=== PATIENT | female | born 1930 | race Caucasian/White ===

== ENCOUNTER → 2017-07-11 | Outpatient (CLI) | payer MEDICARE, BC ==
--- NOTE | 2017-07-12 09:25 | RAD ---
Right leg venous Doppler study: Clinical indications: Right leg swelling and pain. Findings: Duplex sonography (including castellanos scale evaluation and color flow and waveform spectral analysis) of the proximal aspect of the greater saphenous vein and proximal aspect of the profunda femoral vein and the entire length of the common femoral and superficial femoral and popliteal veins and the tibioperoneal trunk and the proximal aspect of the posterior tibial and peroneal veins of the right leg was performed. Normal compressibility, augmentation of color Doppler flow after calf compression, and respiratory variation of Doppler flow is seen. Thus, there are no sonographic findings of deep venous thrombosis within these veins. Impression: There are no sonographic findings of deep venous thrombosis within the veins discussed above of the right lower extremity.
== END | disposition home or self-care (01) ==
LOC: US 15:04
PROVIDERS: ATTEND Family Medicine
DX: M79.604 Pain in right leg (principal); M79.89 Other specified soft tissue disorders
CPT/HCPCS: 93971

== ENCOUNTER 2018-09-11 17:28 | Emergency (ER) | payer MEDICARE, BC ==
[~2018-09-11] VITALS: Ht 165.1 cm; Wt 68.0 kg
[2018-09-11 17:50] VITALS: BP 170/82
[2018-09-11] MEDS ORDERED: ACETAMINOPHEN 500 MG TABLET PO ONE (18:00)
--- NOTE | 2018-09-11 19:08 | ED.ADGEN ---
Past History Past Medical History: Hypertension Past Surgical History: Appendectomy Alcohol Use: None Drug Use: None Adult General Chief Complaint Chief Complaint Fever, weakness HPI HPI Patient is a 88-year-old female presents with generalized weakness and accidental fall while gardening. Patient states she slipped and landed in the softball moderate. Denies injury. This report cough from yesterday and feeling generally weak. Patient noted to have fever 100.3 in the ED. Patient reports generalized malaise. Currently denies cough, chest pain, shortness of breath. No nausea or vomiting. Denies abdominal pain, urinary frequency urgency. No other acute symptoms or complaints.[] Review of Systems Review of Systems Review symptoms as per history of present illness. All other review symptoms are negative All other systems were reviewed and found to be within normal limits, except as documented in this note. Current Medications Current Medications Current Medications Medications (Trade) Dose Ordered Sig/Doug Start Time Stop Time Status Last Admin Dose Admin Acetaminophen (Tylenol) 500 mg 1X ONCE 09/11/18 18:00 09/11/18 18:01 DC 09/11/18 18:13 500 MG Ceftriaxone Sodium 1 gm/ Sodium Chloride 50 ml @ 100 mls/hr 1X ONCE 09/11/18 19:15 09/11/18 19:44 DC 09/11/18 19:25 100 MLS/HR Ceftriaxone Sodium (Rocephin) 1 gm STK-MED ONCE 09/11/18 19:22 09/11/18 19:23 DC Sodium Chloride 50 ml @ As Directed STK-MED ONCE 09/11/18 19:22 09/11/18 19:23 DC Allergies Allergies Allergies Coded Allergies Type Severity Reaction Last Updated Verified No Known Drug Allergies 09/11/18 No Physical Exam Physical Exam Constitutional: Well developed, well nourished, no acute distress, non-toxic appearance. [] HENT: Normocephalic, atraumatic, bilateral external ears normal, oropharynx moist, no oral exudates, nose normal. [] Eyes: PERRLA, EOMI, conjunctiva normal, no discharge. [] Neck: Normal range of motion, no tenderness, supple, no stridor. [] Cardiovascular:Heart rate regular rhythm, no murmur [] Lungs & Thorax: Bilateral breath sounds clear to auscultation [] Abdomen: Bowel sounds normal, soft, no tenderness.. [] Skin: Warm, dry, no erythema, no rash. [] Back: No tenderness, no CVA tenderness. [] Extremities: No tenderness, no cyanosis, no clubbing, ROM intact, no edema. [] Neurologic: Alert and oriented X 3, normal motor function, normal sensory function, no focal deficits noted. [] Psychologic: Affect normal, judgement normal, mood normal. [] Current Patient Data Vital Signs Vital Signs Date Time Temp Pulse Resp B/P (MAP) Pulse Ox O2 Delivery O2 Flow Rate FiO2 09/11/18 17:50 100.3 90 18 96 Room Air Lab Results Laboratory Tests Test 09/11/18 18:50 White Blood Count 5.0 x10^3/uL (4.0-11.0) Red Blood Count 4.18 x10^6/uL (3.50-5.40) Hemoglobin 12.8 g/dL (12.0-15.5) Hematocrit 37.7 % (36.0-47.0) Mean Corpuscular Volume 90 fL (79-100) Mean Corpuscular Hemoglobin 31 pg (25-35) Mean Corpuscular Hemoglobin Concent 34 g/dL (31-37) Red Cell Distribution Width 13.9 % (11.5-14.5) Platelet Count 220 x10^3/uL (140-400) Neutrophils (%) (Auto) 62 % (31-73) Lymphocytes (%) (Auto) 21 % (24-48) L Monocytes (%) (Auto) 15 % (0-9) H Eosinophils (%) (Auto) 2 % (0-3) Basophils (%) (Auto) 1 % (0-3) Neutrophils # (Auto) 3.1 x10^3uL (1.8-7.7) Lymphocytes # (Auto) 1.0 x10^3/uL (1.0-4.8) Monocytes # (Auto) 0.7 x10^3/uL (0.0-1.1) Eosinophils # (Auto) 0.1 x10^3/uL (0.0-0.7) Basophils # (Auto) 0.1 x10^3/uL (0.0-0.2) Sodium Level 135 mmol/L (136-145) L Potassium Level 3.8 mmol/L (3.5-5.1) Chloride Level 100 mmol/L (98-107) Carbon Dioxide Level 25 mmol/L (21-32) Anion Gap 10 (6-14) Blood Urea Nitrogen 19 mg/dL (7-20) Creatinine 1.1 mg/dL (0.6-1.0) H Estimated GFR (Cockcroft-Gault) 46.9 Glucose Level 99 mg/dL (70-99) Calcium Level 8.7 mg/dL (8.5-10.1) EKG EKG [] Radiology/Procedures Radiology/Procedures [] Course & Med Decision Making Course & Med Decision Making Pertinent Labs and Imaging studies reviewed. (See chart for details) [Symptoms improved with treatment. Patient resting currently requesting discharge home. IV fluids antibiotics given prior to discharge. Return precautions reviewed.] Final Impression Final Impression [1 acute febrile illness 2. Urinary tract infection] Dragon Disclaimer Dragon Disclaimer This electronic medical record was generated, in whole or in part, using a voice recognition dictation system. ADDIS BOOKER DO September 11, 2018 19:08
[2018-09-11] MEDS ORDERED: IV NORMAL SALINE 1,000ML 1,000 ML IV ONE (19:15)
[2018-09-11] MEDS ORDERED: cefTRIAXone SODIUM 1 GM VIAL ONE (19:22)
[2018-09-11] MEDS ORDERED: IV NORMAL SALINE 50ML 50 ML ONE (19:22)
[2018-09-11 19:26] LABS: BASO # 0.1 x10^3/uL (0.0-0.2); BASO % 1 % (0-3); EOS # 0.1 x10^3/uL (0.0-0.7); EOS % 2 % (0-3); HEMATOCRIT 37.7 % (36.0-47.0); HEMOGLOBIN 12.8 g/dL (12.0-15.5); LYMPH % 21 % (24-48); MEAN CORPUSCULAR HEMOGLOBIN 31 pg (25-35); MEAN CORPUSCULAR HGB CONC 34 g/dL (31-37); MEAN CORPUSCULAR VOLUME 90 fL (79-100); MONO # 0.7 x10^3/uL (0.0-1.1); MONO % 15 % (0-9); NEUT # 3.1 x10^3uL (1.8-7.7); NEUT % 62 % (31-73); PLATELET COUNT 220 x10^3/uL (140-400); RED BLOOD COUNT 4.18 x10^6/uL (3.50-5.40); RED CELL DISTRIBUTION WIDTH 13.9 % (11.5-14.5)
--- NOTE | 2018-09-11 19:33 | RAD ---
CHEST PA LATERAL History: Cough. Heart size is not enlarged. No evidence of pneumothorax, pleural effusion or airspace consolidation. There is some mild markings in left lung base likely mild atelectasis. There is some focal protuberance or eventration of the left hemidiaphragm. Skeletal structures appear intact. IMPRESSION: Mild atelectasis left lung base. Electronically signed by: Jose Mcwilliams MD (09/11/2018 7:30 PM) [facility]
[2018-09-11 19:35] LABS: CALCIUM 8.7 mg/dL (8.5-10.1); CREATININE 1.1 mg/dL (0.6-1.0); GFR 46.9; POTASSIUM 3.8 mmol/L (3.5-5.1)
[2018-09-11] MEDS ORDERED: CEPH-264 PO (20:14)
[2018-09-11 21:47] LABS: BILIRUBIN,URINE NEG (NEG); CLARITY,URINE CLEAR; COLOR,URINE YELLOW; GLUCOSE,URINE NEG (NEG); NITRITE,URINE NEG (NEG); UROBILINOGEN,URINE 0.2 mg/dL (0.2 mg/dL)
== END 2018-09-11 20:25 | disposition home or self-care (01) ==
LOC: ER 17:28
DX: N39.0 Urinary tract infection, site not specified (principal); I10 Essential (primary) hypertension; W01.0XXA Fall on same level from slipping, tripping and stumbling without subsequent striking against object, initial encounter; Y93.89 Activity, other specified; Y92.89 Other specified places as the place of occurrence of the external cause; Y99.8 Other external cause status
CPT/HCPCS: 36415; 71046; 80048; 81003; 85025; 87040; 87205; 96365; 99285; J0696; 87077; J7030

== ENCOUNTER 2019-05-18 07:18 | Inpatient (IN) | payer MEDICARE, BC ==
[~2019-05-18] VITALS: Ht 160 cm; Wt 71.4 kg
[~2019-05-18 07:18] MED LIST: CEPH-264 PO
[2019-05-18 09:01] VITALS: BP 125/76
[2019-05-18] MEDS ORDERED: AMLO5TAB10 PO (10:43)
--- NOTE | 2019-05-18 15:47 | HP ---
ADMIT DATE: 05/18/2019 HISTORY OF PRESENT ILLNESS: The patient is an 88-year-old female patient who presented with focal left arm weakness. She stated that she was not able to get out the car due to weakness on her left side more than right side on 05/09/2019. The patient reports having some trouble using fork and spoon with her left arm since the day before admission to [facility] on 05/10/2019. Her motor deficit is consistent with denies any sensory deficit. Her daughter also reports that it seems to be harder for her to walk today comparing to the day before, though the patient has known ankle issue, has been going to therapy on a regular basis. She denies any slurring of speech, visual impairment. The daughter stated that she has had a blood clot in her leg 20 years ago, never had any other clotting problems since then. She also reports mild increase in urinary frequency. No dysuria nor urgency. She was evaluated in the [facility] and has had a CT scan of the head, which showed no evidence of acute intracranial hemorrhage. There is generalized supratentorial atrophy, multifocal low density of the supratentorial parenchyma bilaterally nonspecific, although most commonly due to chronic microvascular ischemic disease in a patient of this age. She had had an MRI of the brain, which showed that she has mild patchy acute infarct in the right frontoparietal region. No acute hemorrhage. She has chronic left cerebellar lacunar infarct, moderate chronic small vessel disease, mild generalized cerebral volume loss. She apparently was seen in consultation by the neurologist as well as the anchor tacker. She has had an echocardiogram, which basically showed that her left ventricle is normal in size. Her left ventricular systolic function is normal. Her ejection fraction was 55-60%. Proximal septal thickening is noted. The interatrial septum is intact with no evidence of atrial septal defect or patent foramen ovale. Color Doppler and color flow revealed no significant aortic regurgitation or stenosis. No mitral regurgitation noted and mild tricuspid regurgitation. She has mild pulmonary hypertension with pulmonary artery pressure estimated at 35 mmHg. Apparently, the patient remained stable and she was discharged home with home health and was diagnosed with transient ischemic attack and urinary tract infection, although according to her [id number], the patient was having difficulty walking and she was 2-person assist and requiring wheelchair on today if she would discharge from [facility]. Apparently, she required 2-person assist and seemed to be worse while at home and therefore, a decision was made to admit her to swing bed to continue the process of rehabilitation. PAST MEDICAL HISTORY: Significant for hypertension, recurrent UTIs. PAST SURGICAL HISTORY: Significant for appendectomy and bilateral cataract extraction with intraocular implant placement. ALLERGIES: She has no known drug allergies. MEDICATIONS: She is on amlodipine 5 mg once a day. However, when she was discharged from [place], she was discharged on aspirin as well as Lipitor. FAMILY HISTORY: She has 1 older sister and 1 younger sister, both healthy. Her father at the age of 90 and mother at the age of 54 because of cerebrovascular accident, hypertension. SOCIAL HISTORY: She is , has 3 daughters and 2 sons. She does not smoke, drink alcohol or use any recreational drugs. She is a retired registered nurse. REVIEW OF SYSTEMS: As per history of present illness. PHYSICAL EXAMINATION: GENERAL: On arrival when I saw her today in the hospital, she looked well and was clearly in no apparent respiratory distress. No pallor, jaundice, cyanosis or thyromegaly. No jugular venous distention. No lower limb edema. VITAL SIGNS: Her heart rate was 77, blood pressure was 125/76, temperature 98, respiratory rate was 20, and oxygen saturation was 96%. HEAD, EYES, EARS, NOSE AND THROAT: Showed normocephalic, atraumatic. NECK: Supple. HEART: Showed normal first and second sounds. No gallop or murmur. CHEST: Clear to auscultation. No crepitation or rhonchi. ABDOMEN: Distended, soft, nontender. NEUROLOGIC: She is awake, alert, responding appropriately. All cranial nerves intact. She definitely has left-sided hemiparesis. The muscle strength is 5/5 both right upper and right lower extremity and 3/5 left upper and left lower extremities. IMPRESSION: In summary, this is an 88-year-old female patient who has right-sided cerebrovascular accident involving showed that she has right frontoparietal acute infarct. She does have also chronic left cerebellar lacunar infarct and she has moderate chronic small vessel disease and mild generalized cerebral volume loss. PLAN: We will continue with antihypertensive medication as well as her aspirin and Lipitor and we will start the process of physical and occupational therapy. We will arrange for her to have CT scan of the head and also baseline lab work and we will decide the further management accordingly. SHANE BUTLER MD DR: GERALDO/kaley JOB#: [id number] / [id number]
[2019-05-18] MEDS: ATORVASTATIN CALCIUM 10 MG TABLET. PO SCH ×2 (19:59→22:15)
[2019-05-18 20:00] VITALS: BP 130/71
[2019-05-19 05:11] VITALS: BP 146/36
[2019-05-19 06:38] LABS: HEMATOCRIT 33.8 % (36.0-47.0); HEMOGLOBIN 11.4 g/dL (12.0-15.5); RED BLOOD COUNT 3.68 x10^6/uL (3.50-5.40); RED CELL DISTRIBUTION WIDTH 14.3 % (11.5-14.5)
[2019-05-19 06:53] LABS: ALBUMIN 2.9 g/dL (3.4-5.0); ALBUMIN/GLOBULIN RATIO 0.9 (1.0-1.7); CALCIUM 8.5 mg/dL (8.5-10.1); GFR 52.2; POTASSIUM 4.1 mmol/L (3.5-5.1); TOTAL BILIRUBIN 0.2 mg/dL (0.2-1.0); TOTAL PROTEIN 6.3 g/dL (6.4-8.2)
[2019-05-19] MEDS: ASPIRIN 81 MG TAB.CHEW PO SCH (08:24)
[2019-05-19] MEDS: amLODIPine BESYLATE 5 MG TABLET PO SCH (08:24)
[2019-05-19 19:50] VITALS: BP 143/62
[2019-05-19] MEDS: ATORVASTATIN CALCIUM 10 MG TABLET. PO SCH (19:56)
[2019-05-20 03:43] VITALS: BP 141/69
[2019-05-20] MEDS: ASPIRIN 81 MG TAB.CHEW PO SCH (08:07)
[2019-05-20] MEDS: amLODIPine BESYLATE 5 MG TABLET PO SCH (08:07)
[2019-05-20 18:39] VITALS: BP 137/73
[2019-05-20] MEDS: ATORVASTATIN CALCIUM 10 MG TABLET. PO SCH (20:11)
[2019-05-21 05:43] VITALS: BP 140/63
[2019-05-21] MEDS: amLODIPine BESYLATE 5 MG TABLET PO SCH (08:43)
[2019-05-21] MEDS: ASPIRIN 81 MG TAB.CHEW PO SCH (08:43)
[2019-05-21 18:14] VITALS: BP 125/58
[2019-05-21] MEDS: ATORVASTATIN CALCIUM 10 MG TABLET. PO SCH (20:11)
[2019-05-22 05:20] VITALS: BP 152/56
[2019-05-22] MEDS: amLODIPine BESYLATE 5 MG TABLET PO SCH (08:25)
[2019-05-22] MEDS: ASPIRIN 81 MG TAB.CHEW PO SCH (08:25)
[2019-05-22 12:24] LABS: BACTERIA,URINE FEW /HPF (0-FEW); BILIRUBIN,URINE NEG (NEG); CLARITY,URINE HAZY; COLOR,URINE YELLOW; GLUCOSE,URINE NEG (NEG); NITRITE,URINE NEG (NEG); RBC,URINE 0 /HPF (0-2); SQUAMOUS EPITHELIAL CELL,UR OCC /LPF; UROBILINOGEN,URINE 0.2 mg/dL (0.2 mg/dL); WBC,URINE >40 /HPF (0-4)
[2019-05-22 18:16] VITALS: BP 140/80
[2019-05-22] MEDS ORDERED: AMOXICILLIN 250 MG CAPSULE PO SCH (21:00)
[2019-05-22] MEDS: LACTOBACILLUS RHAMNOSUS GG 1 CAPSULE. PO SCH (21:50)
[2019-05-22] MEDS: PHENAZOPYRIDINE 100 MG TABLET. PO SCH (21:50)
[2019-05-22] MEDS: CEPHALEXIN 250 MG CAPSULE PO SCH (21:51)
[2019-05-22] MEDS: OXYBUTYNIN CHLORIDE 5 MG TABLET PO SCH (21:51)
[2019-05-22] MEDS: ATORVASTATIN CALCIUM 10 MG TABLET. PO SCH (21:51)
[2019-05-23 05:58] VITALS: BP 115/81
[2019-05-23] MEDS: PHENAZOPYRIDINE 100 MG TABLET. PO SCH ×3 (09:39→20:25)
[2019-05-23] MEDS: CEPHALEXIN 250 MG CAPSULE PO SCH ×3 (09:39→20:26)
[2019-05-23] MEDS: LACTOBACILLUS RHAMNOSUS GG 1 CAPSULE. PO SCH ×2 (09:39→20:26)
[2019-05-23] MEDS: ASPIRIN 81 MG TAB.CHEW PO SCH (09:40)
[2019-05-23] MEDS: OXYBUTYNIN CHLORIDE 5 MG TABLET PO SCH ×2 (09:40→20:26)
[2019-05-23] MEDS: amLODIPine BESYLATE 5 MG TABLET PO SCH (09:40)
[2019-05-23 18:45] VITALS: BP 127/66
[2019-05-23] MEDS: ATORVASTATIN CALCIUM 10 MG TABLET. PO SCH (20:25)
[2019-05-24 04:59] VITALS: BP 127/62
[2019-05-24] MEDS: OXYBUTYNIN CHLORIDE 5 MG TABLET PO SCH ×2 (08:20→21:06)
[2019-05-24] MEDS: ASPIRIN 81 MG TAB.CHEW PO SCH (08:21)
[2019-05-24] MEDS: amLODIPine BESYLATE 5 MG TABLET PO SCH (08:21)
[2019-05-24] MEDS: PHENAZOPYRIDINE 100 MG TABLET. PO SCH ×3 (08:21→21:06)
[2019-05-24] MEDS: CEPHALEXIN 250 MG CAPSULE PO SCH ×3 (08:22→21:06)
[2019-05-24] MEDS: LACTOBACILLUS RHAMNOSUS GG 1 CAPSULE. PO SCH ×2 (08:22→21:06)
[2019-05-24 18:19] VITALS: BP 130/62
[2019-05-24] MEDS: ATORVASTATIN CALCIUM 10 MG TABLET. PO SCH (21:06)
[2019-05-25 05:25] VITALS: BP 136/61
[2019-05-25] MEDS: OXYBUTYNIN CHLORIDE 5 MG TABLET PO SCH ×2 (08:23→20:17)
[2019-05-25] MEDS: LACTOBACILLUS RHAMNOSUS GG 1 CAPSULE. PO SCH ×2 (08:23→20:17)
[2019-05-25] MEDS: CEPHALEXIN 250 MG CAPSULE PO SCH ×3 (08:23→20:17)
[2019-05-25] MEDS: ASPIRIN 81 MG TAB.CHEW PO SCH (08:23)
[2019-05-25] MEDS: amLODIPine BESYLATE 5 MG TABLET PO SCH (08:23)
[2019-05-25 18:24] VITALS: BP 144/76
[2019-05-25] MEDS: ATORVASTATIN CALCIUM 10 MG TABLET. PO SCH (20:17)
[2019-05-26 06:57] VITALS: BP 160/73
[2019-05-26] MEDS: LACTOBACILLUS RHAMNOSUS GG 1 CAPSULE. PO SCH ×2 (07:56→21:32)
[2019-05-26] MEDS: CEPHALEXIN 250 MG CAPSULE PO SCH ×3 (07:56→21:32)
[2019-05-26] MEDS: ASPIRIN 81 MG TAB.CHEW PO SCH (07:57)
[2019-05-26] MEDS: amLODIPine BESYLATE 5 MG TABLET PO SCH (07:57)
[2019-05-26] MEDS: OXYBUTYNIN CHLORIDE 5 MG TABLET PO SCH ×2 (07:57→21:33)
[2019-05-26 17:56] VITALS: BP 152/68
[2019-05-26] MEDS: ATORVASTATIN CALCIUM 10 MG TABLET. PO SCH (21:33)
[2019-05-27 05:26] VITALS: BP 158/77
[2019-05-27] MEDS: amLODIPine BESYLATE 5 MG TABLET PO SCH (08:29)
[2019-05-27] MEDS: LACTOBACILLUS RHAMNOSUS GG 1 CAPSULE. PO SCH ×2 (08:29→20:23)
[2019-05-27] MEDS: CEPHALEXIN 250 MG CAPSULE PO SCH ×3 (08:29→20:23)
[2019-05-27] MEDS: OXYBUTYNIN CHLORIDE 5 MG TABLET PO SCH ×2 (08:29→20:23)
[2019-05-27] MEDS: ASPIRIN 81 MG TAB.CHEW PO SCH (08:29)
[2019-05-27 18:58] VITALS: BP 132/56
[2019-05-27] MEDS: ATORVASTATIN CALCIUM 10 MG TABLET. PO SCH (20:23)
[2019-05-28 05:03] VITALS: BP 158/74
[2019-05-28] MEDS: amLODIPine BESYLATE 5 MG TABLET PO SCH (07:39)
[2019-05-28] MEDS: OXYBUTYNIN CHLORIDE 5 MG TABLET PO SCH ×2 (07:39→19:38)
[2019-05-28] MEDS: LACTOBACILLUS RHAMNOSUS GG 1 CAPSULE. PO SCH ×2 (07:39→19:38)
[2019-05-28] MEDS: ASPIRIN 81 MG TAB.CHEW PO SCH (07:39)
[2019-05-28] MEDS: CEPHALEXIN 250 MG CAPSULE PO SCH (07:39)
[2019-05-28] MEDS: CIPROFLOXACIN HCL 250 MG TABLET PO SCH (17:34)
[2019-05-28 18:21] VITALS: BP 122/61
[2019-05-28] MEDS: ATORVASTATIN CALCIUM 10 MG TABLET. PO SCH (19:37)
[2019-05-29 05:56] VITALS: BP 156/63
[2019-05-29] MEDS: ASPIRIN 81 MG TAB.CHEW PO SCH (09:08)
[2019-05-29] MEDS: CIPROFLOXACIN HCL 250 MG TABLET PO SCH ×2 (09:08→20:45)
[2019-05-29] MEDS: OXYBUTYNIN CHLORIDE 5 MG TABLET PO SCH ×2 (09:08→20:46)
[2019-05-29] MEDS: LACTOBACILLUS RHAMNOSUS GG 1 CAPSULE. PO SCH ×2 (09:08→20:45)
[2019-05-29] MEDS: amLODIPine BESYLATE 5 MG TABLET PO SCH (09:09)
[2019-05-29] MEDS: ATORVASTATIN CALCIUM 10 MG TABLET. PO SCH (20:45)
[2019-05-30 06:01] VITALS: BP 156/76
[2019-05-30] MEDS: ASPIRIN 81 MG TAB.CHEW PO SCH (09:09)
[2019-05-30] MEDS: LACTOBACILLUS RHAMNOSUS GG 1 CAPSULE. PO SCH ×2 (09:09→20:56)
[2019-05-30] MEDS: CIPROFLOXACIN HCL 250 MG TABLET PO SCH ×2 (09:09→20:56)
[2019-05-30] MEDS: OXYBUTYNIN CHLORIDE 5 MG TABLET PO SCH ×2 (09:10→20:56)
[2019-05-30] MEDS: amLODIPine BESYLATE 5 MG TABLET PO SCH (09:10)
[2019-05-30 18:15] VITALS: BP 123/57
[2019-05-30] MEDS: ATORVASTATIN CALCIUM 10 MG TABLET. PO SCH (20:56)
[2019-05-31 05:09] VITALS: BP 127/63
[2019-05-31] MEDS: amLODIPine BESYLATE 5 MG TABLET PO SCH (08:35)
[2019-05-31] MEDS: OXYBUTYNIN CHLORIDE 5 MG TABLET PO SCH ×2 (08:35→20:10)
[2019-05-31] MEDS: ASPIRIN 81 MG TAB.CHEW PO SCH (08:35)
[2019-05-31] MEDS: CIPROFLOXACIN HCL 250 MG TABLET PO SCH ×2 (08:35→20:10)
[2019-05-31] MEDS: LACTOBACILLUS RHAMNOSUS GG 1 CAPSULE. PO SCH ×2 (08:35→20:10)
[2019-05-31 18:55] VITALS: BP 152/53
[2019-05-31] MEDS: ATORVASTATIN CALCIUM 10 MG TABLET. PO SCH (20:10)
[2019-06-01 06:04] VITALS: BP 147/67
[2019-06-01] MEDS: ASPIRIN 81 MG TAB.CHEW PO SCH (08:23)
[2019-06-01] MEDS: CIPROFLOXACIN HCL 250 MG TABLET PO SCH ×2 (08:24→20:15)
[2019-06-01] MEDS: amLODIPine BESYLATE 5 MG TABLET PO SCH (08:24)
[2019-06-01] MEDS: OXYBUTYNIN CHLORIDE 5 MG TABLET PO SCH ×2 (08:24→20:15)
[2019-06-01] MEDS: LACTOBACILLUS RHAMNOSUS GG 1 CAPSULE. PO SCH ×2 (08:24→20:15)
[2019-06-01 18:03] VITALS: BP 136/63
[2019-06-01] MEDS: ATORVASTATIN CALCIUM 10 MG TABLET. PO SCH (20:15)
[2019-06-02 06:47] VITALS: BP 147/65
[2019-06-02] MEDS: CIPROFLOXACIN HCL 250 MG TABLET PO SCH ×2 (08:56→20:26)
[2019-06-02] MEDS: amLODIPine BESYLATE 5 MG TABLET PO SCH (08:56)
[2019-06-02] MEDS: ASPIRIN 81 MG TAB.CHEW PO SCH (08:56)
[2019-06-02] MEDS: OXYBUTYNIN CHLORIDE 5 MG TABLET PO SCH ×2 (08:56→20:26)
[2019-06-02] MEDS: LACTOBACILLUS RHAMNOSUS GG 1 CAPSULE. PO SCH ×2 (08:56→20:26)
[2019-06-02 18:03] VITALS: BP 112/52
[2019-06-02] MEDS: ATORVASTATIN CALCIUM 10 MG TABLET. PO SCH (20:26)
[2019-06-03 06:05] VITALS: BP 123/78
[2019-06-03] MEDS: amLODIPine BESYLATE 5 MG TABLET PO SCH (08:20)
[2019-06-03] MEDS: ASPIRIN 81 MG TAB.CHEW PO SCH (08:20)
[2019-06-03] MEDS: OXYBUTYNIN CHLORIDE 5 MG TABLET PO SCH ×2 (08:20→19:51)
[2019-06-03] MEDS: CIPROFLOXACIN HCL 250 MG TABLET PO SCH ×2 (08:20→19:51)
[2019-06-03] MEDS: LACTOBACILLUS RHAMNOSUS GG 1 CAPSULE. PO SCH ×2 (08:20→19:51)
[2019-06-03 17:15] VITALS: BP 146/62
[2019-06-03] MEDS: ATORVASTATIN CALCIUM 10 MG TABLET. PO SCH (19:51)
[2019-06-04 05:14] VITALS: BP 137/61
[2019-06-04 08:35] VITALS: BP 137/61
[2019-06-04] MEDS: LACTOBACILLUS RHAMNOSUS GG 1 CAPSULE. PO SCH (08:35)
[2019-06-04] MEDS: amLODIPine BESYLATE 5 MG TABLET PO SCH (08:35)
[2019-06-04] MEDS: CIPROFLOXACIN HCL 250 MG TABLET PO SCH (08:35)
[2019-06-04] MEDS: OXYBUTYNIN CHLORIDE 5 MG TABLET PO SCH (08:36)
[2019-06-04] MEDS: ASPIRIN 81 MG TAB.CHEW PO SCH (08:36)
== END 2019-06-04 13:40 | disposition home health service (06) | DRG 947 ==
LOC: LND 08:23 → 1 SOUTH 09:00 → LND 05-19 07:09
PROVIDERS: ADMIT Internal Medicine; ATTEND Internal Medicine
DX: R53.1 Weakness (principal); I63.81 Other cerebral infarction due to occlusion or stenosis of small artery; N39.0 Urinary tract infection, site not specified; I27.20 Pulmonary hypertension, unspecified; I10 Essential (primary) hypertension; Z87.440 Personal history of urinary (tract) infections; Z98.42 Cataract extraction status, left eye; Z98.41 Cataract extraction status, right eye; Z82.49 Family history of ischemic heart disease and other diseases of the circulatory system; Z82.3 Family history of stroke
CPT/HCPCS: 36415; 80053; 80061; 81001; 85027; 87086; 87186; 87641; 97110; 97112; 97116; 97530; 97535

== ENCOUNTER 2019-09-10 09:25 | Emergency (ER) | payer MEDICARE, BC ==
[~2019-09-10] VITALS: Ht 160 cm; Wt 74.7 kg
[~2019-09-10 09:25] MED LIST changes: +AMLO5TAB10 PO
--- NOTE | 2019-09-10 09:46 | RAD ---
CT CODE STROKE HEAD WO History: Left-sided weakness, stroke Comparison: May 10, 2019 Technique: Noncontrast CT imaging was performed of the head. Exposure: One or more of the following individualized dose reduction techniques were utilized for this examination: 1. Automated exposure control 2. Adjustment of the mA and/or kV according to patient size 3. Use of iterative reconstruction technique. Findings: No acute intracranial hemorrhage is identified. More distal basilar is somewhat dense more distally. There is a focus of lower density of the more central, superior medulla. There is other ill-defined low-density of the supratentorial parenchyma bilaterally. Ventricular size is proportionate to sulcal spaces. There is no intra-axial mass effect or midline shift. Visualized paranasal sinuses and mastoid air cells are aerated. Impression: 1. There is no evidence of acute intracranial hemorrhage. 2. There is some scattered ill-defined hypodensity of the supratentorial parenchyma bilaterally, nonspecific findings more commonly due to chronic microvascular ischemic disease in a patient this age. There is also focus of relative lower density of the central, superior medulla, could be artifactual unless clinical suspicion for brainstem ischemia. More distal basilar is slightly hyperintense, thromboembolism better excluded by CTA if clinically needed. Findings discussed with KAYA SOTO at 09/10/2019 9:37 AM. FOR INTERNAL CODING PURPOSES RESULT CODE: Electronically signed by: Royal Castaneda MD (09/10/2019 9:43 AM) [id number]
--- NOTE | 2019-09-10 09:51 | PHYS DOC ---
Past History Past Medical History: Hypertension Past Surgical History: Appendectomy Alcohol Use: None Drug Use: None General Adult EDM: Chief Complaint: NEURO SYMPTOMS/DEFICITS HPI: HPI: Patient is a 89-year-old female who was brought from home by EMS due to syncopal episode. It was reported that patient got up this morning, she was sitting on the bedside commode in her room and then she passed out. EMS were called, when they stood her up patient passed out again. Patient had the same episode like this a few months ago when she was found to have blood clot in her leg and blood clot in her lung. Patient was admitted to hospital again. Patient was put on Eliquis. Patient is scheduled to be done her Eliquis in TWO DAYS. Patient denies any headache, no chest pain, no abdominal pain. Her family reports that after she woke up from the syncopal episode patient was confused, her speech was slow, her left side to be weaker than the right side. Review of Systems: Review of Systems: Constitutional: Denies fever or chills Eyes: Denies change in visual acuity HENT: Denies nasal congestion or sore throat Respiratory: Denies cough or shortness of breath Cardiovascular: Denies chest pain or edema GI: Denies abdominal pain, nausea, vomiting, bloody stools or diarrhea : Denies dysuria Musculoskeletal: Denies back pain or joint pain Integument: Denies rash Neurologic: Denies headache, focal weakness or sensory changes. Positive for syncope, slurred speech. Endocrine: Denies polyuria or polydipsia Lymphatic: Denies swollen glands Psychiatric: Denies depression or anxiety Heart Score: Risk Factors: Risk Factors: DM, Current or recent (<one month) smoker, HTN, HLP, family history of CAD, obesity. Risk Scores: Score 0 - 3: 2.5% MACE over next 6 weeks - Discharge Home Score 4 - 6: 20.3% MACE over next 6 weeks - Admit for Clinical Observation Score 7 - 10: 72.7% MACE over next 6 weeks - Early Invasive Strategies Allergies: Allergies: Allergies Coded Allergies Type Severity Reaction Last Updated Verified I S O L A T I O N *CONTACT* Allergy Unknown 06/01/19 Yes NKMA Allergy Unknown 05/19/19 Yes Physical Exam: PE: Constitutional: Well developed, well nourished, no acute distress, non-toxic appearance. [] HENT: Normocephalic, atraumatic, bilateral external ears normal, oropharynx moist, no oral exudates, nose normal. [] Eyes: PERRLA, EOMI, conjunctiva normal, no discharge. [] Neck: Normal range of motion, no tenderness, supple, no stridor. [] Cardiovascular:Heart rate regular rhythm, no murmur [] Lungs & Thorax: Bilateral breath sounds clear to auscultation [] Abdomen: Bowel sounds normal, soft, no tenderness, no masses, no pulsatile masses. [] Skin: Warm, dry, no erythema, no rash. [] Back: No tenderness, no CVA tenderness. [] Extremities: No tenderness, no cyanosis, no clubbing, ROM intact, Left leg is swollen with slight erythema. Neurologic: Alert and oriented X 3, normal motor function, normal sensory function, no focal deficits noted. [] Psychologic: Affect normal, judgement normal, mood normal. [] EKG: EKG: EKG was done did not show any ST segment elevation. [] Radiology/Procedures: Radiology/Procedures: [][place] [address] IMAGING REPORT Signed PATIENT: JOHN LOWE ACCOUNT: [id number] : 1930 LOCATION: ER AGE: 89 SEX: F EXAM STATUS: PRE ER ORD. PHYSICIAN: KAYA SOTO DO REASON: LEFT SIDE WEAKNESS PROCEDURE: CT CODE STROKE HEAD WO CT CODE STROKE HEAD WO History: Left-sided weakness, stroke Comparison: May 10, 2019 Technique: Noncontrast CT imaging was performed of the head. Exposure: One or more of the following individualized dose reduction techniques were utilized for this examination: 1. Automated exposure control 2. Adjustment of the mA and/or kV according to patient size 3. Use of iterative reconstruction technique. Findings: No acute intracranial hemorrhage is identified. More distal basilar is somewhat dense more distally. There is a focus of lower density of the more central, superior medulla. There is other ill-defined low-density of the supratentorial parenchyma bilaterally. Ventricular size is proportionate to sulcal spaces. There is no intra-axial mass effect or midline shift. Visualized paranasal sinuses and mastoid air cells are aerated. Impression: 1. There is no evidence of acute intracranial hemorrhage. 2. There is some scattered ill-defined hypodensity of the supratentorial parenchyma bilaterally, nonspecific findings more commonly due to chronic microvascular ischemic disease in a patient this age. There is also focus of relative lower density of the central, superior medulla, could be artifactual unless clinical suspicion for brainstem ischemia. More distal basilar is slightly hyperintense, thromboembolism better excluded by CTA if clinically needed. Findings discussed with KAYA SOTO at 09/10/2019 9:37 AM. FOR INTERNAL CODING PURPOSES RESULT CODE: Electronically signed by: Nicole Koenig MD (09/10/2019 9:43 AM) [id number] DICTATED AND SIGNED BY: NICOLE KOENIG MD DATE: 09/10/19 0943 CC: YAYO ZENG MD; KAYA SOTO DO ~ [address] [address] IMAGING REPORT Signed PATIENT: JOHN LOWE ACCOUNT: [id number] : 1930 LOCATION: ER AGE: 89 SEX: F EXAM STATUS: REG ER ORD. PHYSICIAN: KAYA SOTO DO REASON: code stroke, left side weakness, slurred speech, syncope PROCEDURE: CT ANGIOGRAPHY HEAD AND NECK CT ANGIOGRAPHY HEAD AND NECK History:Code stroke. Left-sided weakness. Slurred speech. Syncope. Technique: After bolus of intravenous contrast, volumetric CT data acquisition was acquired of the head and neck. Multiplanar reconstruction images to include MIP and 3-D reconstruction images are submitted. Exposure: One or more of the following individualized dose reduction techniques were utilized for this examination: 1. Automated exposure control 2. Adjustment of the mA and/or kV according to patient size 3. Use of iterative reconstruction technique. Comparison: Noncontrast head CT September 10, 2019 and May 10, 2019 Any determination of stenosis is based on NASCET criteria. Head CTA: ICA: Mild carotid siphon atheromatous plaque bilaterally. No significant stenosis. No occlusion. No aneurysm. Right internal carotid artery posterior commuting artery origin infundibulum. MCA: Mild irregularity and narrowing of the left distal M1 segment. No occlusion. RAJ: No stenosis, occlusion or aneurysm. SHUTTLE FIXER: Irregularity with narrowings of the bilateral posterior cerebral arteries. Focal high-grade narrowing of the left P2/P3 segment. High-grade narrowing of the right P3 segment. Basilar artery: No stenosis, occlusion or aneurysm. Distal vertebral arteries: No stenosis, occlusion or aneurysm. CT angiogram neck: Aortic arch: Mild atheromatous plaque within the aortic arch and branch vessels. Common carotid arteries: No stenosis, occlusion or dissection. Mild carotid bifurcation atheromatous plaque. Internal carotid arteries: No stenosis, occlusion or dissection. External carotid arteries: Patent Vertebral arteries: Mild scattered atheromatous plaque within the bilateral vertebral arteries. Mild narrowing of the right vertebral artery at the C5-C6 level due to cervical spondylosis. Imaged lung apices are unremarkable. Soft tissues appear normal. Bones: Moderate multilevel cervical spondylosis most prominent C4-C5 and C5-C6. Multilevel neuroforaminal narrowing. No high-grade canal stenosis. Grade 1 anterolisthesis T1 on T2. TMJ arthropathy. Impression: 1. No large vessel occlusion. 2. Multifocal irregularity and narrowing of the bilateral posterior cerebral arteries with focal high-grade stenosis. 3. Mild narrowing of the left distal M1 segment. 4. Additional mild atheromatous disease within the head and neck. FOR INTERNAL CODING PURPOSES Critical result: Findings discussed with KAYA SOTO at 09/10/2019 11:37 AM. RESULT CODE: (C) Electronically signed by: Roe Golden DO (09/10/2019 11:41 AM) [id number] DICTATED AND SIGNED BY: REO GOLDEN DO DATE: 09/10/19 1141 CC: YAYO ZENG MD; KAYA SOTO DO ~ [address] [address] IMAGING REPORT Signed PATIENT: JOHN LOWE ACCOUNT: [id number] : 1930 LOCATION: ER AGE: 89 SEX: F EXAM STATUS: REG ER ORD. PHYSICIAN: KAYA SOTO DO REASON: left leg swelling, hx of DVT in the past PROCEDURE: VENOUS LOWER EXTREMITY LEFT EXAMINATION: VENOUS LOWER EXTREMITY LEFT HISTORY: Left pleural effusion with swelling, history of DVT COMPARISON/CORRELATION: 08/06/2019 bilateral lower extremity venous duplex exam. FINDINGS: Left lower extremity duplex venous ultrasound exam was performed. Grayscale, color Doppler, and spectral Doppler imaging was performed. Compression and augmentation was performed. The left common femoral vein, superficial femoral vein, popliteal vein, and saphenofemoral junction are normal with no evidence of deep venous thrombus. 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 No new DVT identified. Electronically signed by: Terrence Muller MD (09/10/2019 12:56 PM) [id number] DICTATED AND SIGNED BY: TERRENCE MULLER MD DATE: 09/10/19 1256 CC: YAYO ZENG MD; KAYA SOTO DO ~ Course & Med Decision Making: Course & Med Decision Making Pertinent Labs and Imaging studies reviewed. (See chart for details) Patient is an 89-year-old female who was evaluated in the ER due to vasovagal response while she was trying to have a bowel movement. Patient passed out when she stood up. Patient's condition improved significantly IN THE ER, she was awake alert, oriented to time place and person. Patient was able to move all extremities, her speech was normal. Patient did not want to stay in the hospital. Patient is DNR. Discussed with patient caregiver of [id number] and her son who want to take her home. Patient and her family did not want her to be admitted to the hospital. Dragon Disclaimer: Dragon Disclaimer: This electronic medical record was generated, in whole or in part, using a voice recognition dictation system. Departure Departure: Impression: Primary Impression: Syncope and collapse Disposition: HOME, SELF-CARE Condition: STABLE Referrals: YAYO ZENG MD (PCP) please follow up with your family doctor next week. Patient Instructions: Syncope Additional Instructions: Thank you for visiting our Emergency Department. We appreciate you trusting us with your care. If any additional problems come up don't hesitate to return to visit us. Please follow up with your primary care provider so they can plan ad ditional care if needed and know about the problem that you had. If symptoms worsen come back to the Emergency Department. Any concerning symptoms that start such as chest pain, shortness of air, weakness or numbness on one side of the body, running high fevers or any other concerning symptoms return to the ER. KAYA SOTO DO September 10, 2019 09:51
[2019-09-10 10:28] LABS: BASO % 0 % (0-3); EOS % 0 % (0-3); HEMATOCRIT 38.1 % (36.0-47.0); HEMOGLOBIN 12.4 g/dL (12.0-15.5); LYMPH % 7 % (24-48); MEAN CORPUSCULAR HEMOGLOBIN 30 pg (25-35); MEAN CORPUSCULAR HGB CONC 33 g/dL (31-37); MEAN CORPUSCULAR VOLUME 91 fL (79-100); MONO # 0.5 x10^3/uL (0.0-1.1); MONO % 3 % (0-9); NEUT # 13.3 x10^3uL (1.8-7.7); NEUT % 90 % (31-73); PLATELET COUNT 293 x10^3/uL (140-400); RED BLOOD COUNT 4.18 x10^6/uL (3.50-5.40); RED CELL DISTRIBUTION WIDTH 15.2 % (11.5-14.5); WHITE BLOOD COUNT 14.9 x10^3/uL (4.0-11.0)
[2019-09-10 10:30] LABS: CALCIUM 9.4 mg/dL (8.5-10.1); CREATININE 1.1 mg/dL (0.6-1.0); GFR 46.8; POTASSIUM 3.9 mmol/L (3.5-5.1)
[2019-09-10 10:38] LABS: BACTERIA,URINE 0 /HPF (0-FEW); BILIRUBIN,URINE NEG (NEG); CLARITY,URINE CLEAR; COLOR,URINE YELLOW; GLUCOSE,URINE NEG (NEG); NITRITE,URINE NEG (NEG); RBC,URINE OCC /HPF (0-2); SQUAMOUS EPITHELIAL CELL,UR FEW /LPF; UROBILINOGEN,URINE 0.2 mg/dL (0.2 mg/dL)
[2019-09-10 10:44] LABS: ALBUMIN 3.3 g/dL (3.4-5.0); ALBUMIN/GLOBULIN RATIO 0.8 (1.0-1.7); MAGNESIUM 2.1 mg/dL (1.8-2.4); TOTAL BILIRUBIN 0.5 mg/dL (0.2-1.0); TOTAL PROTEIN 7.5 g/dL (6.4-8.2)
[2019-09-10] MEDS ORDERED: IOHEXOL 350 MG/ML 100 ML VIAL. IV ONE (11:00)
--- NOTE | 2019-09-10 11:44 | RAD ---
CT ANGIOGRAPHY HEAD AND NECK History:Code stroke. Left-sided weakness. Slurred speech. Syncope. Technique: After bolus of intravenous contrast, volumetric CT data acquisition was acquired of the head and neck. Multiplanar reconstruction images to include MIP and 3-D reconstruction images are submitted. Exposure: One or more of the following individualized dose reduction techniques were utilized for this examination: 1. Automated exposure control 2. Adjustment of the mA and/or kV according to patient size 3. Use of iterative reconstruction technique. Comparison: Noncontrast head CT September 10, 2019 and May 10, 2019 Any determination of stenosis is based on NASCET criteria. Head CTA: ICA: Mild carotid siphon atheromatous plaque bilaterally. No significant stenosis. No occlusion. No aneurysm. Right internal carotid artery posterior commuting artery origin infundibulum. MCA: Mild irregularity and narrowing of the left distal M1 segment. No occlusion. RAJ: No stenosis, occlusion or aneurysm. [employer]: Irregularity with narrowings of the bilateral posterior cerebral arteries. Focal high-grade narrowing of the left P2/P3 segment. High-grade narrowing of the right P3 segment. Basilar artery: No stenosis, occlusion or aneurysm. Distal vertebral arteries: No stenosis, occlusion or aneurysm. CT angiogram neck: Aortic arch: Mild atheromatous plaque within the aortic arch and branch vessels. Common carotid arteries: No stenosis, occlusion or dissection. Mild carotid bifurcation atheromatous plaque. Internal carotid arteries: No stenosis, occlusion or dissection. External carotid arteries: Patent Vertebral arteries: Mild scattered atheromatous plaque within the bilateral vertebral arteries. Mild narrowing of the right vertebral artery at the C5-C6 level due to cervical spondylosis. Imaged lung apices are unremarkable. Soft tissues appear normal. Bones: Moderate multilevel cervical spondylosis most prominent C4-C5 and C5-C6. Multilevel neuroforaminal narrowing. No high-grade canal stenosis. Grade 1 anterolisthesis T1 on T2. TMJ arthropathy. Impression: 1. No large vessel occlusion. 2. Multifocal irregularity and narrowing of the bilateral posterior cerebral arteries with focal high-grade stenosis. 3. Mild narrowing of the left distal M1 segment. 4. Additional mild atheromatous disease within the head and neck. FOR INTERNAL CODING PURPOSES Critical result: Findings discussed with KAYA SOTO at 09/10/2019 11:37 AM. RESULT CODE: (C) Electronically signed by: Roe Golden DO (09/10/2019 11:41 AM) [id number]
[2019-09-10 12:42] VITALS: BP 141/75
--- NOTE | 2019-09-10 13:00 | RAD ---
EXAMINATION: VENOUS LOWER EXTREMITY LEFT HISTORY: Left pleural effusion with swelling, history of DVT COMPARISON/CORRELATION: 08/06/2019 bilateral lower extremity venous duplex exam. FINDINGS: Left lower extremity duplex venous ultrasound exam was performed. Grayscale, color Doppler, and spectral Doppler imaging was performed. Compression and augmentation was performed. The left common femoral vein, superficial femoral vein, popliteal vein, and saphenofemoral junction are normal with no evidence of deep venous thrombus. 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 No new DVT identified. Electronically signed by: Terrence Medrano MD (09/10/2019 12:56 PM) [email or web address]
--- NOTE | 2019-09-10 16:44 | EKG ---
[address] [address] Test Date: 2019-09-10 Test Time: 09:42:19 Pat Name: JOHN LOWE Department: Room: Gender: F Commercial Electrician: : 1930 Requested By: KAYA SOTO Order Number: [id number] Reading MD: Oliver Otero Measurements Intervals [place] Rate: 82 P: 3 MN: 190 QRS: 27 QRSD: 92 T: 70 QT: 368 QTc: 433 Interpretive Statements SINUS RHYTHM T ABNORMALITY IN HIGH LATERAL LEADS RI6.02 No previous ECG available for comparison Electronically Signed On 09-13-2019 8:42:20 CDT by Oliver Otero
== END 2019-09-10 13:25 | disposition home or self-care (01) ==
LOC: ER 09:25
DX: R55 Syncope and collapse (principal); R41.0 Disorientation, unspecified; I10 Essential (primary) hypertension; Z91.041 Radiographic dye allergy status
CPT/HCPCS: 36415; 70450; 70496; 70498; 80053; 81001; 83735; 83880; 84484; 85025; 85610; 85730; 93005; 93971; 99285; P9612; Q9967

== ENCOUNTER → 2020-01-31 | Outpatient (CLI) | payer MEDICARE, BC ==
--- NOTE | 2020-01-31 17:32 | RAD ---
EXAM: US left axilla DATE: 01/31/2020 1:00 PM COMPARISON: None INDICATION: LEFT AXILLARY REDNESS AND ITCHY/RASH TECHNIQUE: Longitudinal and transverse imaging with intermittent Doppler sampling completed with attention to FINDINGS/ IMPRESSION: Normal sonographic appearance of the subcutaneous tissues in the right axilla. Small lymph node is noted with echogenic hilum. No loculated fluid collection is seen. Electronically signed by: Erwin Barker MD (01/31/2020 5:29 PM) [email or web address]
== END | disposition home or self-care (01) ==
LOC: US 13:01
PROVIDERS: ATTEND Family Medicine
DX: R22.2 Localized swelling, mass and lump, trunk (principal)
CPT/HCPCS: 76881